=== PATIENT | male | born 1940 | race Caucasian/White ===

== ENCOUNTER → 2023-10-25 09:53 | Outpatient (REF) | payer MEDICARE, OTHER, SELFPAY ==
[2023-10-25 10:46] LABS: % Basophils 0.8 % (0-2); % Eosinophils 2.8 % (0-6); % Immature Granulocytes 0.7 % (0-0.5); % Lymphocytes 24.6 % (20.5-51.1); % Monocytes 10.9 % (1.7-9.3); % Neutrophils 60.2 % (42.2-75.2); Absolute Basophils 0.1 10^3/uL (0-0.2); Absolute Eosinophils 0.2 10^3/uL (0-0.7); Absolute Immature Granulocytes 0.1 10^3/uL (0-0.05); Absolute Lymphocytes 2.1 10^3/uL (1.2-3.4); Absolute Monocytes 0.9 10^3/uL (0.1-0.6); Absolute Neutrophils 5.2 10^3/uL (1.4-6.5); Hematocrit 42.1 % (39.0-52.0); Hemoglobin 14.4 g/dL (13.0-18.0); Mean Corp Hgb Conc. 34.2 g/dL (33.0-37.0); Mean Corpuscular Hgb 28.6 pg (27.0-31.0); Mean Corpuscular Volume 83.5 fL (80.0-94.0); Mean Platelet Volume 9.3 fL (7.4-10.4); Nucleated Red Blood Cells % 0 % (-); Platelet Count 227 10^3/uL (130-400); Red Blood Cell Count 5.04 10^6/uL (4.70-6.10); Red Cell Dist. Width 13.5 % (11.5-14.5); White Blood Cell Count 8.7 10^3/uL (4.8-10.8)
[2023-10-25 10:59] LABS: INR 1.06; PT 13.9 Sec (11.4-14.6)
[2023-10-25 11:37] LABS: ALT (SGPT) 21 U/L (0-50); AST (SGOT) 28 U/L (17-59); Albumin 4.2 g/dl (3.5-5.0); Alkaline Phosphatase 84 U/L (38-126); Blood Urea Nitrogen 20 mg/dl (9-20); Calcium 10.1 mg/dl (8.4-10.2); Carbon Dioxide 29 mmol/L (22-30); Chloride 101 mmol/L (98-107); Glucose 171 mg/dl (70-99); Magnesium 1.9 mg/dl (1.6-2.3); Potassium 4.6 mmol/L (3.5-5.1); Sodium 138 mmol/L (135-145); Total Bilirubin 1.3 mg/dl (0.2-1.3); Total Protein 7.2 g/dl (6.3-8.2); eGFR > 60.00
== END ==
LOC: SDSPAT 09:53
PROVIDERS: ATTENDING PHYSICIAN Internal Medicine Cardiovascular Disease; OTHER PHYSICIAN Internal Medicine Cardiovascular Disease
DX: Z01.818 Encounter for other preprocedural examination (principal); I48.19 Other persistent atrial fibrillation
CPT/HCPCS: 36415; 80053; 83735; 85025; 85610; 86850; 86900; 86901; 93005

== ENCOUNTER 2023-11-02 06:17 | Day surgery (SDC) | payer MEDICARE, OTHER, SELFPAY ==
[2023-10-25 10:21] VITALS: BMI 31.9
[2023-11-02] VITALS (29 sets, daily range): BP systolic 101–146; BP diastolic 59–85
--- NOTE | 2023-11-02 07:19 | W.PN.UPDATE ---
Update Note
Progress Note Update
Informed consent given
He discussed that he started his eliquis a month ago (we provided samples) and intermittently was taking it daily but overall he thinks a majority of the time is BID. I discussed with patient that we will look at his ALBINA prior to transseptal with
ICE and if we see ALBINA thrombus I discussed with patient that we would have to stop procedure and not perform ablation. He understands and agrees. He did have some urinary retention post procedure but was voiding the following day.
Also discussed the need for uninterrupted OAC at BID for a minimum of 3 months post procedure and he acknowledges.
--- NOTE | 2023-11-02 07:21 | PTCARENOTE ---
Pt states he has only been taking eliquis once a day except the last 2 days he has been taking it twice a day. Pt states he is supposed to start xarelto after today's procedure. Dr Ramirez, Dr Castaneda, and Perlita MARTIN made aware. Dr Ramirez states ok
to proceed with procedure today. Will continue to monitor.
[2023-11-02 09:13] LABS: ACT-LR - POC 260 Seconds (116-155)
[2023-11-02 09:29] LABS: ACT-LR - POC 255 Seconds (116-155)
[2023-11-02 10:14] LABS: ACT-LR - POC 345 Seconds (116-155)
--- NOTE | 2023-11-02 10:41 | ITS.CL.ABL ---
Account Supervisor - Ablation
Ablation
Procedure Report:
ELECTROPHYSIOLOGY ABLATION STUDY
�
DATE:: November 02, 2023���������������������������� REFERRING: Dr. Frederic Toth
�
INDICATION: Persistent supraventricular tachycardia in the form of atrial flutter. The atrial flutter appeared atypical. Prior ablation at [facility] in 2010 with PVI and a second procedure with me in 2019 where we reisolation of all 4
pulmonary veins into the extrapulmonary lesions to the posterior wall. He now presents with an atypical flutter.
�
HISTORY: See H and P.� Positive flat P wave throughout the precordium and inferiorly directed P wave although a initial negative portion of the P wave in 2 3 and F.
�
ANTIARRHYTHMIC DRUG: Toprol only
�
PRE-PROCEDURE BINDU: Intracardiac ultrasound demonstrated no atrial thrombus prior to transseptal puncture
�
PRESENTING RHYTHM: Atrial flutter cycle length 300 ms which she was demonstrated to be counterclockwise right atrial flutter.
�
'TIME-OUT':� called and confirmed.
�
SEDATION/ANESTHESIA:� provided via the anesthesia department using general anesthesia (LMA).
�
INTRAVENOUS/ARTERIAL ACCESS:
Right femoral venous - 8Fr
Left femoral venous - 8 Fr, 6 Fr
Ultrasound guidance for bilateral femoral vein access was utilized by me to obtain access with demonstration of normal anatomy
CHADS-VASC Score:
�
HAS-Bled Score
�
PROCEDURE:�
1.� A decapolar CS catheter was placed within the CS for mapping and pacing.� This was also used as the reference catheter for the 3-D map. The patient was demonstrated to have a cycle length 300 ms regular tachycardia which was activating the
coronary sinus and a proximal distal fashion. Anatomic mapping was performed with a multipolar catheter demonstrating a counterclockwise right atrial activation about the tricuspid valve with greater than 2000 activation points. Entrainment
mapping demonstrated and confirmed macro injury about the tricuspid valve in a counterclockwise fashion. As such we then proceeded to ablation as below of the CTI which slowed and terminated the patient's atrial flutter with interest was conduction
time bidirectionally 170 ms documented with multipolar grid and pacing from lateral and medial to the line. This was also repeated at the end of the procedure demonstrating persistent bidirectional block at end of procedure.
�
2. The intracardiac ultrasound catheter was positioned in the RA to identify the FO for targeting of transseptal puncture, assist� in identification of the pulmonary vein ostia, monitoring pre and post ablation pulmonary vein flow velocities,
monitoring for 'bubble' formation during RF application as a sign of thermal injury,� and to monitor for pericardial effusion during mapping and ablation procedure.�� Left atrial size, LV ejection fraction, and pulmonary vein flows were monitored
pre and post ablation procedure. The other valves were inspected and found to be free of significant regurgitation or stenosis.
�
3.� Half of the calculated heparin bolus was administered prior to the first transeptal puncture.� Transseptal puncture was performed to diagnose RA and LA pressure so that safety of LA mapping and ablation could be further assessed, and to access
the left atrium and pulmonary veins for mapping and ablation.� This entailed advancing an 10 Haitian steerable with dilator into the superior vena cava and withdrawing both (monitoring intracardiac ultrasound, fluoroscopy and tip pressure) with the
tip oriented toward the atrial septum.� The fossa ovalis was engaged (indicated by sudden displacement of the sheath tip as well as tenting of the fossa seen on intracardiac ultrasound).� Left atrial access required a pass with the [place]
needle extended.� Left atrial catheter position was confirmed by pressure monitoring (RA mean pressure 8 mm Hg and LA mean presure 14 mm Hg), LA saturation ( 99 %),� as well as fluoroscopy.� The sheath was advanced over the dilator and positioned
in the left atrium.� This procedure was repeated for the Agilis sheath.� The remainder of the calculated heparin bolus was administered and heparin was
infused to maintain ACT at 300 -350 seconds throughout the case.
�
4.� RA pacing was performed via the proximal decapolar poles and LA pacing was performed via the distal decapolr poles.
�
5. A quadrapolar catheter was first positioned at the His position for His Bundle recording which was tagged via the 3-D Navex sytem, and then passed to the RVA for RV pacing and recording.
�
6. Multipolar catheter was placed in each of the LIPV, LSPV, RSPV and the RIPV.��The pulmonary veins were isolated at baseline and a wide [place] fashion with patchy areas of scar in the posterior wall from prior extrapulmonary lesions with a 23 mm
cryoballoon.
�
7.� Next, a 3-D map was created using Navex.�� A 3-D reconstructed CT image was compared to the 3-D Navex map to assist in anatomic interpretation, mapping and ablation.� The CT image and the NavX image were fused.
�
8. Extrapulmonary lesions were given to the posterior wall of the left atrium rendering the posterior wall of the left atrium isolated with entrance and exit block which was confirmed with the ablation catheter and pacing. There was entrance and
exit block in all 4 pulmonary veins at baseline.
�
9. At the end of the procedure there was bidirectional block at 170 ms bidirectionally.
�
�
TOTAL FLOURO TIME: 21.0 minutes 130 mGy
�
TOTAL RF DURATION: 18 minutes
�
REVERSAL OF HEPARIN: 35 mg of protamine, slow IV administration
�
COMPLICATIONS:�
None
Intracardiac US shows no pericardial effusion post ablation.
�
SUMMARY:��
Complex left atrial mapping and ablation.
Clinical arrhythmia was counterclockwise right atrial flutter with bidirectional block after slowing and termination with ablation. Pulmonary veins arrested at baseline in the posterior wall the left atrium was also isolated as above. Difficult
transseptal due to significant scarring from prior procedure.
�
RECOMMENDATIONS:
1. Admit to monitored bed.�
2. Resume anticoagulation. The patient was instructed about compliance and taking his Eliquis it twice daily for a minimum of 3 months and he understands and agrees. Procedure
3. Out of bed for hours
4.� He had urinary retention at last procedure and we will observe until he can have normal urination
�
Copy to: Dr. Frederic Toth
�
--- NOTE | 2023-11-02 11:12 | PTCARENOTE ---
EKG done and given to Marychuy Rehman NP along with old EKG. No change per Marychuy Rehman NP. Will continue to monitor.
--- NOTE | 2023-11-02 12:55 | PTCARENOTE ---
Pt states he has eliquis samples at home and a new prescription for xarelto at home. Per Marychuy Rehman NP, pt is to take eliquis tonight at 4pm and resume twice daily until samples are finished. After eliquis is complete, pt is to take xarelto every
evening (once daily). Verbal instructions given to pt about medication. Pt verbalized understanding of instructions given. Questions encouraged and answered.
--- NOTE | 2023-11-02 13:11 | PTCARENOTE ---
Dr Ramirez at pt bedside speaking to pt.
--- NOTE | 2023-11-02 15:40 | W.PN.UPDATE ---
Update Note
Progress Note Update
83 yo WM s/p CTI flutter and redo PVI (same day). He feels good, no cp, sob, gregory diet, voiding, amb w/o dizziness, EKG SR 1deg AVB bifascicular block and occ PVC's. He will resume OAC Eliquis tonight when he gets home until he runs out of his
Eliquis samples then he will switch to Xarelto 20mg daily. Activity restrictions reviewed. He will f/u Dr. Toth in 2 mo. He is for d/c home after 4pm.
SUMMARY:��
Complex left atrial mapping and ablation.
Clinical arrhythmia was counterclockwise right atrial flutter with bidirectional block after slowing and termination with ablation. Pulmonary veins arrested at baseline in the posterior wall the left atrium was also isolated as above. Difficult
transseptal due to significant scarring from prior procedure.
�
RECOMMENDATIONS:
1. Admit to monitored bed.�
2. Resume anticoagulation. The patient was instructed about compliance and taking his Eliquis it twice daily for a minimum of 3 months and he understands and agrees. Procedure
3. Out of bed for hours
4.� He had urinary retention at last procedure and we will observe until he can have normal urination
�
Copy to: Dr. Frederic Ttoh
�
--- NOTE | 2023-11-02 16:00 | PTCARENOTE ---
Pt's discharge time is 1600. Pt's discharge instructions state to take his PM dose of eliquis at 4pm at home. Marychuy Rehman WOOLEN TESTER made aware and states ok for pt to take his own eliquis once he arrives home and not before discharge. Pt verbalized
understanding of taking his eliquis upon arrival home.
== END 2023-11-02 16:35 | disposition home or self-care (01) ==
LOC: CATH 06:17
PROVIDERS: ATTENDING PHYSICIAN Internal Medicine Cardiovascular Disease; OTHER PHYSICIAN Internal Medicine Cardiovascular Disease
DX: I48.19 Other persistent atrial fibrillation (principal); R06.09 Other forms of dyspnea; I10 Essential (primary) hypertension; I45.2 Bifascicular block; I25.2 Old myocardial infarction; G47.33 Obstructive sleep apnea (adult) (pediatric); Z87.891 Personal history of nicotine dependence; E66.9 Obesity, unspecified; Z68.31 Body mass index [BMI] 31.0-31.9, adult; Z95.5 Presence of coronary angioplasty implant and graft; Z79.899 Other long term (current) drug therapy; Z79.01 Long term (current) use of anticoagulants
CPT/HCPCS: 93662; C1732; C1894; C1730; C1769; C1766; C2630; C1892; 76937; 85347; 93005; 93462; 93653